=== PATIENT | male | born 1995 | race Caucasian/White ===

== ENCOUNTER 2021-12-14 14:49 | Inpatient (IN) | payer SELFPAY ==
[2021-12-14] VITALS (12 sets, daily range): BP systolic 107–120; BP diastolic 75–91; PULSE 68–93; RESP 18; TEMP 36.5–37.3; O2SAT 96–97; BMI 26.6; BMI 26.8
--- NOTE | 2021-12-14 16:40 | ED.NURSE ---
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 20G IV started in pt R AC, blood drawn, fluids started. Assessments completed.
[2021-12-14] MEDS: 0.9 % SODIUM CHLORIDE 1000 ml 1,000 ML IV (16:42)
[2021-12-14 16:59] LABS: Basophils Percent Auto 0.2 % (0.0-3.0); Eosinophils Percent Auto 78.8 % (0.0-7.0); Hematocrit 46.2 % (37.0-53.0); Hemoglobin* 15.3 gm/dL (13.5-17.5); Immature Granulocytes Abs Auto 0.05 K/uL (0.00-0.30); Lymphocytes Percent Auto 8.1 % (20-44); Mean Corpuscular HGB Conc 33 gm/dL (32-36); Mean Corpuscular Hemoglobin 32 pg (26-34); Mean Corpuscular Volume 95 fL (80-100); Monocytes Percent Auto 2.1 % (0.0-11.0); Neutrophils Percent Auto 10.7 % (42.0-72.0); Platelet Count* 245 K/uL (140-440); RDW Coefficient of Variation % 12.9 % (11.5-15.5); Red Blood Count 4.85 m/uL (4.30-5.90)
--- NOTE | 2021-12-14 17:00 | ED.NURSE ---
Critical lab received: WBC 33.64. Dr. Ca informed.
[2021-12-14 17:02] LABS: White Blood Count* 33.64 K/uL (4.50-11.00)
--- NOTE | 2021-12-14 17:09 | CRLHL7_ITS ---
For Patients: As a result of the 21st Century Cures Act, medical imaging exams and procedure reports are released immediately into your electronic medical record. You may view this report before your referring provider. If you have questions, please contact your health care provider. Indication: Abdominal pain Technique: CT abdomen and pelvis with IV contrast, Isovue 370, 85 cc IV Please note that all CT scans at this facility use dose modulation, iterative reconstruction, and/or weight-based dosing when appropriate to reduce radiation dose to as low as reasonably achievable. Comparison: None Findings: Bibasilar atelectasis. Left lower lobe granuloma. Normal heart size. No pericardial effusion. The inferior esophagus is severely thickened (series 2, image 16). Normal liver size and contour. No focal hepatic lesions. Hepatic veins are under opacified due to contrast timing. The portal veins appear patent. Normal gallbladder. No biliary dilatation. Normal appearance of the adrenal glands, kidneys, spleen and pancreas. The celiac artery, SMA, renal arteries and renal veins appear patent. There is severe gastric wall thickening (series 2, image 50). Normal course of the duodenum. Normal course and caliber of the abdominal aorta and the IVC. No atherosclerotic calcifications. No significant lymphadenopathy. Bladder wall is thickened. Prostate present. There is no bowel obstruction. There are multiple segments of thickened small and large bowel, for example the left colon appears thickened (series 2 image 93). Segments of the right colon appears severely thickened, for example (series 2, image 78). Multiple loops of distal small bowel including the terminal ileum appear thickened, for example (series 2, image 97. There is fecalization of multiple loops of small bowel. The appendix is mildly dilated although air-filled and wall-thickening is favored reactive. Although many loops of bowel are severely edematous, enhancement appears within normal limits for the degree of inflammation. There is small volume ascites and mesenteric edema. No acute retroperitoneal abnormality. No aggressive osseous lesions. No acute osseous abnormality. No acute body wall abnormality. Impression: 1. Multifocal, noncontiguous, severe gastrointestinal wall thickening extending the entirety of the GI tract involving the distal esophagus, stomach, areas of small bowel and large bowel. Findings are nonspecific and may be seen in the setting of infectious and inflammatory enterocolitis, including Crohn`s disease. The distribution of bowel inflammation makes an ischemic etiology much less likely. 2. Severe bladder wall thickening, possibly reactive. Correlate with UA. 3. Small ascites and mesenteric edema, favored reactive. Please note that all CT scans at this facility use dose modulation, iterative reconstruction, and/or weight-based dosing when appropriate to reduce radiation dose to as low as reasonably achievable. Dictated by Hiram Salas MD @ 12/14/2021 6:19:51 PM (Electronically Signed)
[2021-12-14 17:14] LABS: Chloride* 102 mmol/L (96-114)
[2021-12-14 17:15] LABS: Albumin* 4.8 g/dL (3.3-5.0); Potassium* 4.3 mmol/L (3.6-5.1); Sodium* 141 mmol/L (135-149)
[2021-12-14 17:17] LABS: Bilirubin Total* 0.3 mg/dL (0.1-1.5); Creatinine* 0.9 mg/dL (0.5-1.5); Est. Creatinine Clearance* 119.28; Estimated Glomerular Filt Rate 120 ml/min
[2021-12-14 17:18] LABS: Alanine Aminotransferase* 10 U/L (4-50); Alkaline Phosphatase* 177 U/L (40-150); Aspartate Amino Transferase* 24 U/L (12-35); Blood Urea Nitrogen* 13 mg/dL (5-24); Calcium* 9.3 mg/dL (8.4-10.6); Carbon Dioxide* 27 mmol/L (20-32); Glucose* 112 mg/dL (60-115); Lipase* 61 U/L (23-300); Total Protein* 8.8 g/dL (6.0-8.3)
[2021-12-14 17:34] LABS: PCR FLU A Negative PCR FLU A (Negative); PCR FLU B Negative PCR FLU B (Negative)
[2021-12-14 17:39] LABS: SARS PCR* Negative SARS-CoV-2 (Negative)
--- NOTE | 2021-12-14 18:45 | ED.NURSE ---
in [facility] to speak with pt about course of treatment. MD speaking dutch directly to patient. Pt provided UA after speaking with MD.
[2021-12-14 18:48] LABS: Appearance Urine Clear (Clear); Bilirubin Urine Negative (Negative); Blood Urine Negative (Negative); Color Urine Yellow (Yellow); Glucose Urine Negative (Negative); Ketones Urine Negative (Negative); Leukocyte Esterase Urine Negative (Negative); Nitrite Urine Negative (Negative); Protein Urine Negative (Negative); Urobilinogen Urine 0.2 (0.2-1.0)
--- NOTE | 2021-12-14 18:55 | ED.GENADULT ---
HPI - General Adult General Chief complaint: Abdominal Pain Stated complaint: Abdominal Pain/Diarrhea Time Seen by Provider: 12/14/21 15:48 History of Present Illness HPI narrative: Daniel is a 26-year-old male patient without significant PMH that presents with abdominal pain, not well localized. Daniel describes the pain as cramping and aching with occasional sharp pain noted. The patient reports the pain has been waxing/waning for 15 days. The patient also reports history of bloating and gas, nausea without vomiting, and diarrhea. The patient reports not taking medication for his discomfort. The patient reports not taking OTC medication. The patient is able to tolerate PO intake. The patient reports eating has no obvious affect on symptoms. The patient states that he has had no known sick contacts, no recent changes in diet, no travel. He does report h/o tobacco and EtOH use. The patient reports drinking 5-6 beers every couple of weeks. See nursing notes for details. Related Data Home Medications Medication Instructions Recorded Confirmed No Known Home Medications 12/14/21 12/14/21 Allergies Allergy/AdvReac Type Severity Reaction Status Date / Time No Known Drug Allergies Allergy Verified 12/14/21 17:49 Review of Systems Const: Reports: fatigue and malaise; Denies: fever or chills ENMT: Denies: throat pain, nasal discharge or nasal congestion Cardio: Denies: shortness of breath with exertion Resp: Reports: cough; Denies: shortness of breath GI: Reports: abdominal pain, nausea, diarrhea and bloating; Denies: vomiting, heartburn, constipation or painful bowel movements Integ/Breast: Reports: other (nodule/swelling noted in umbilicus); Denies: rash or itching Neuro: Denies: headache, dizziness or confusion Psych: Denies: anxiety Endo: Reports: fatigue PFSH PFSH Social History Smoking Status: Former smoker Do you use any of these nicotine containing products: None Second hand tobacco smoke exposure: No How often do you have a drink containing alcohol: monthly or less How often do you have six or more drinks on one occasion: Never AUDIT-C Alcohol total score: 1 Non-prescribed substance use: denies use Exam Const: Vital Signs, click to edit/add: Vital Signs - 24 hr 12/14/21 15:23 12/14/21 16:45 12/14/21 17:45 Temperature 99.2 F Pulse Rate [Right Pulse Oximeter] 93 68 Respiratory Rate 18 Blood Pressure [Ri ght Upper Arm] 120/81 108/90 H 120/89 Pulse Oximetry 96 96 Oxygen Delivery Me thod Room Air Room Air Documenting provider has reviewed patient's vital signs: yes Common normals: no apparent distress, average body habitus, oriented x3, no limitations, healthy appearing, alert and well nourished General appearance: cooperative, comfortable, well kempt and well developed Orientation/consciousness: Yes awake, Yes oriented to person, Yes oriented to place and Yes oriented to time HENMT: Common normals: normocephalic and head/scalp atraumatic Head and scalp: normocephalic and atraumatic Resp: Common normals: normal respiratory effort, no retractions, no use of accessory muscles and clear to auscultation bilaterally Effort & inspection: able to speak in complete sentences Auscultation: clear to auscultation bilaterally Cardio: Common normals: regular rate, regular rhythm, S1 normal heart sound, S2 normal heart sound, no gallops, no clicks and no murmurs Rate: regular rate Rhythm: regular rhythm Heart sounds: S1 normal and S2 normal GI: Common normals: Normal to inspection, nondistended, normoactive bowel sounds present and soft to palpation Auscultation: hypoactive bowel sounds Palpation: soft, tender Details: other (generalized, mild) and hernia umbilical Extremity: Common normals: normal to inspection, full ROM and no clubbing, cyanosis or edema Neuro: Common normals: oriented x3 Sensorium/orientation: awake, alert, oriented to person, oriented to place and oriented to time Gait (neuro): normal gait Motor exam: strength 5/5 throughout Psych: Common normals: mental status grossly normal, thought process normal, cooperative, affect normal, speech normal and activity/motor behavior normal Appearance: well kempt Speech: normal speech Thought process: normal thought process Skin: Common normals: no rashes or lesions noted and skin turgor normal General skin exam: no rashes or lesions noted and turgor normal Course Course Hospital Course: Daniel presented to the ED with complaints of 15 days of abdominal pain for evaluation and treatment. The patient had laboratory studies performed, after which due to elevation of white count, CT abdomen pelvis with contrast was performed. Evidence of potential inflammatory bowel disease was present on CT. Due to elevation in white count, severe abdominal pain, and persistence of symptoms, the hospitalist was requested to consider observation evaluation and continuation of diagnostic workup. The patient has remained somewhat comfortable while in the emergency department. At time of transfer he is stable. His vital signs have remained normal in the emergency department. Reevaluation(s) Reevaluation #1: Patient reports no significant change in symptoms. Patient's vital signs have remained stable. The results were discussed, and the patient verbalized understanding. Reasons for admission were discussed and he is agreeable. Time: 20:15 Vital Signs Vital signs: Initial Vital Signs Temperature 99.2 F 12/14/21 15:23 Temperature Source Temporal Artery Scan 12/14/21 15:23 Pulse Rate 93 12/14/21 15:23 Respiratory Rate 18 12/14/21 15:23 Blood Pressure 120/81 12/14/21 15:23 Blood Pressure Mean 94 12/14/21 15:23 Pulse Oximetry 96 12/14/21 15:23 Oxygen Delivery Method 12/14/21 15:23 Vital Signs Temperature 99.2 F 12/14/21 15:23 Pulse Rate 93 12/14/21 15:23 Respiratory Rate 18 12/14/21 15:23 Blood Pressure 120/81 12/14/21 15:23 Pulse Oximetry 96 12/14/21 15:23 Oxygen Delivery Method 12/14/21 15:23 Temperature 99.2 F 12/14/21 15:23 Pulse Rate 68 12/14/21 17:45 Respiratory Rate 18 12/14/21 15:23 Blood Pressure 120/89 12/14/21 17:45 Pulse Oximetry 96 12/14/21 17:45 Oxygen Delivery Method 12/14/21 17:45 Medical Decision Making MDM Narrative Medical decision making narrative: During the evaluation of this patient consider multiple differential diagnosis considerations. The life-threatening differential diagnoses considered include: Appendicitis, aortic aneurysm, mesenteric ischemia, bowel perforation, volvulus, and bowel obstruction. Other differential diagnoses include but are not limited to: Inflammatory bowel disease, cholecystitis, pancreatitis, hepatitis, gastritis, GERD, diverticulitis, peptic ulcer disease, pyelonephritis/UTI, renal colic/stone, diseases of the genitourinary system and reproductive system, as well as the other etiologies. Lab Data Labs: Lab Results 12/14/21 12/14/21 12/14/21 Range/Units 16:40 16:40 16:50 WBC 33.64 H* (4.50-11.00) K/uL RBC 4.85 (4.30-5.90) m/uL Hgb 15.3 (13.5-17.5) gm/dL Hct 46.2 (37.0-53.0) % MCV 95 (80-100) fL MCH 32 (26-34) pg MCHC 33 (32-36) gm/dL RDW Coeff of Richard 12.9 (11.5-15.5) % Plt Count 245 (140-440) K/uL Neut % (Auto) 10.7 L (42.0-72.0) % Lymph % (Auto) 8.1 L (20-44) % Trimble % (Auto) 2.1 (0.0-11.0) % Eos % (Auto) 78.8 H (0.0-7.0) % Baso % (Auto) 0.2 (0.0-3.0) % Neut # (Auto) 3.60 (1.7-7.0) K/uL Lymph # (Auto) 2.70 (0.90-2.90) K/uL Trimble # (Auto) 0.70 (0.00-0.90) K/UL Eos # (Auto) 26.50 H (0.00-0.50) K/uL Baso # (Auto) 0.10 (0.00-0.30) K/uL Abs Immat Gran (auto) 0.05 (0.00-0.30) K/uL Sodium 141 (135-149) mmol/L Potassium 4.3 (3.6-5.1) mmol/L Chloride 102 (96-114) mmol/L Carbon Dioxide 27 (20-32) mmol/L BUN 13 (5-24) mg/dL Creatinine 0.9 (0.5-1.5) mg/dL Estimated Creat Clear 119.28 Estimated GFR 120 ml/min Glucose 112 (60-115) mg/dL Venous Lactic Acid (Serial Order) Calcium 9.3 (8.4-10.6) mg/dL Total Bilirubin 0.3 (0.1-1.5) mg/dL AST 24 (12-35) U/L ALT 10 (4-50) U/L Alkaline Phosphatase 177 H (40-150) U/L Total Protein 8.8 H (6.0-8.3) g/dL Albumin 4.8 (3.3-5.0) g/dL Lipase 61 (23-300) U/L Urine Color (Yellow) Urine Appearance (Clear) Urine pH (5.0-8.5) Ur Specific Baudette (1.000-1.030) Urine Protein (Negative) Urine Glucose (UA) (Negative) Urine Ketones (Negative) Urine Blood (Negative) Urine Nitrite (Negative) Urine Bilirubin (Negative) Urine Urobilinogen (0.2-1.0) Ur Leukocyte Esterase (Negative) SARS-CoV-2 (PCR) Negative SARS-CoV-2 (Negative) Influenza Type A (PCR) Negative PCR FLU A (Negative) Influenza Type B (PCR) Negative PCR FLU B (Negative) 12/14/21 12/14/21 Range/Units 17:37 18:35 WBC (4.50-11.00) K/uL RBC (4.30-5.90) m/uL Hgb (13.5-17.5) gm/dL Hct (37.0-53.0) % MCV (80-100) fL MCH (26-34) pg MCHC (32-36) gm/dL RDW Coeff of Richard (11.5-15.5) % Plt Count (140-440) K/uL Neut % (Auto) (42.0-72.0) % Lymph % (Auto) (20-44) % Trimble % (Auto) (0.0-11.0) % Eos % (Auto) (0.0-7.0) % Baso % (Auto) (0.0-3.0) % Neut # (Auto) (1.7-7.0) K/uL Lymph # (Auto) (0.90-2.90) K/uL Trimble # (Auto) (0.00-0.90) K/UL Eos # (Auto) (0.00-0.50) K/uL Baso # (Auto) (0.00-0.30) K/uL Abs Immat Gran (auto) (0.00-0.30) K/uL Sodium (135-149) mmol/L Potassium (3.6-5.1) mmol/L Chloride (96-114) mmol/L Carbon Dioxide (20-32) mmol/L BUN (5-24) mg/dL Creatinine (0.5-1.5) mg/dL Estimated Creat Clear Estimated GFR ml/min Glucose (60-115) mg/dL Venous Lactic Acid (Serial Order) Calcium (8.4-10.6) mg/dL Total Bilirubin (0.1-1.5) mg/dL AST (12-35) U/L ALT (4-50) U/L Alkaline Phosphatase (40-150) U/L Total Protein (6.0-8.3) g/dL Albumin (3.3-5.0) g/dL Lipase (23-300) U/L Urine Color Yellow (Yellow) Urine Appearance Clear (Clear) Urine pH 5.0 (5.0-8.5) Ur Specific Baudette 1.010 (1.000-1.030) Urine Protein Negative (Negative) Urine Glucose (UA) Negative (Negative) Urine Ketones Negative (Negative) Urine Blood Negative (Negative) Urine Nitrite Negative (Negative) Urine Bilirubin Negative (Negative) Urine Urobilinogen 0.2 (0.2-1.0) Ur Leukocyte Esterase Negative (Negative) SARS-CoV-2 (PCR) (Negative) Influenza Type A (PCR) (Negative) Influenza Type B (PCR) (Negative) Discharge Plan Discharge Clinical Impression: Diarrhea, IBD (inflammatory bowel disease) Patient Disposition: Admitted As Inpatient Condition: Stable Activity Level: Activity as Tolerated Discharge Diet: Heart Healthy (2 gm sodium, low fat) and Low Fiber Prescriptions: No Action No Known Home Medications Follow Up/Referrals: Provider,Not a Local [Primary Care Provider] -
--- NOTE | 2021-12-14 20:26 | W.PC.EDHO ---
Primary Language: Romanian Preferred Language: Romanian Orientation Status: [x] Alert & Oriented [] Slight Confusion [] Known Dx Dementia Transfers By: [x] Assist of 1 [] Assist of 2 [] Lift Description of Symptoms ED Triage Present Problem abd pain x 15 days. some vomiting and diarrhea. Description no fevers. pain does improve with ibuprofen Pain Pain Description [Lower Dull, Achy Abdomen] Pain Intensity [Lower Abdomen] 6 Pain Intensity 6 Pain Intensity 6 Pain Intensity 6 Pain Intensity 6 Pain Scale Used [Lower Abdomen Numeric (1 - 10) ] Pain Scale Used Numeric (1 - 10) Pain Scale Used Numeric (1 - 10) Pain Scale Used Numeric (1 - 10) Pain Scale Used Numeric (1 - 10) IV Insertion/Site Date of IV Line Insertion [ 12/14/21 Right Antecubital] Oxygen Administration Pulse Oximetry 96 Pulse Oximetry 96 Oxygen Delivery Method Room Air Oxygen Delivery Method Room Air
[2021-12-14 20:28] LABS: Lactate Sepsis 2 Hour 0.8 mmol/L (0.5-1.9)
--- NOTE | 2021-12-14 20:28 | ED.NURSE ---
Report called to M/S RN.
--- NOTE | 2021-12-14 21:01 | P.IMHP_ITS ---
Hospitalist- H&P: HPI History of Present Illness Time Seen by Provider: 20:00 Date Seen: 12/14/21 Chief complaint: Abdominal Pain/Diarrhea Narrative: Daniel Lewis is a 26 year old man who is usually healthy. About 15 days ago he had the sudden onset of right lower quadrant abdominal pain that he describes as aching. At times he describes the pain as transiently cramping and sharp. Over time the discomfort became a little more generalized, not so lo calized. Pain seemed to wax and wane. Has had nausea without vomiting. Interestingly the nausea is worse when he 1st awakens. Nausea seems to resolved after he eats. Has felt bloated and gassy. Has had diarrhea since then as well. Over the last few days it seems to have postprandial diarrhea within 45 minutes of eating. Denies blood loss of any sort including hematochezia or melena. Has been able to tolerate oral intake. Appetite is has remained normal. Denies fevers, rigors, diaphoresis. For the abdominal discomfort he has been taking [id number] ibuprofen 200 mg tabs, 2 tabs orally twice daily. He is not sure if it has helped or not. Ordinarily he does not take ibuprofen. Has not tried any other pain relieving medications. Has also used [id number] Gas-X for the bloating which seems to have helped at times. Review of Systems Status of ROS: Reports: 10 or more systems reviewed and unremarkable except as noted in History and below Narrative: No prior similar symptoms in the past. Denies chest heaviness, pressure, tightness, or pain. Denies syncope or near-syncope. Denies orthostasis, lightheadedness, or vertigo. Denies any oral lesions. Has not had any new rashes. Denies cold or heat intolerance. Denies polyuria, polydipsia, polyphagia. Denies edema. No focal motor neurologic deficits. Denies easy bruisability. No spontaneous bleeding. Denies jaundice or icterus. Denies pruritus. Denies dysuria, urgency, frequency, hematuria. Denies myalgias or arthralgias. Interestingly enough throughout all of this he has continue to work. 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 These symptoms have not slowed him down and so far as his ability to carry out his work. Has felt a little more tired however. It is not getting better and thus he presents for further assessment today in regard to the same. No family history of similar illness. No family history of Crohn's disease or any other inflammatory bowel disease. Patient is originally from [place]. Has been living in [facility] for about 12 years. Lives with his and 2 children. and children are doing well without symptoms or concerns. [facility] Social History Highest level of school completed/degree received: high school graduate Smoking Status: Former smoker Do you use any of these nicotine containing products: None Second hand tobacco smoke exposure: No How often do you have a drink containing alcohol: monthly or less Alcohol type: beer How often do you have six or more drinks on one occasion: Never AUDIT-C Alcohol total score: 1 Non-prescribed substance use: denies use Caffeine: Yes service: No Meds Home Medications and Allergies Home Medications Medication Instructions Recorded Confirmed Type No Known Home Medications 12/14/21 12/14/21 History Allergies Allergy/AdvReac Type Severity Reaction Status Date / Time No Known Drug Allergies Allergy Verified 12/14/21 17:49 Exam Narrative: Exam Narrative: Appears comfortable when I see him. No acute distress. Well-developed, muscular young man. Primary language is [place]. Speaks some Citizen [place]. I speak with him principally through an senior financial reporting analyst. Alert, oriented to self, place, time, situation. Appears anxious. Mood and affect are congruent. External auditory canals are clear tympanic membranes normal hearing is preserved. Midline nasal septum nasal mucosa. Buccal mucosa somewhat dry and tacky. No oral lesions. Dentition in fair repair. Has no icterus or conjunctival injection. Pupils equally round reactive to light and accommodation. Extraocular muscles are intact. Vision is grossly preserved. Midline trachea. Normal thyroid. No JVD, hepatojugular reflux, or carotid bruits. Neck is supple. Does not have lymphadenopathy in the pre or postauricular chains, anterior- posterior cervical chains, submandibular or submental fossa, supra or infraclavicular fossa, or axilla bilaterally. Lungs are clear to auscultation, without wheezing, rhonchi, or rales. Chest wall excursions are full. No CVA tenderness. Heart tones with regular rhythm, normal S1-S2, without murmur, gallop, or rub. PMI is not laterally displaced. Abdomen with active bowel sounds. Subjective discomfort to palpation without rebound or guarding. No organomegaly or masses. Does have a 1-1/2 cm easily reducible umbilical hernia. Extremities without edema. Easily palpable pulses upper and lower extremities. No petechiae, rashes, cyanosis. Skin is intact. Full range of motion of all joints. No inflamed or swollen joints. No focal motor neurologic deficits. Independent transfer, station, and gait. Const: Vital Signs, click to edit/add: Vital Signs - 24 hr 12/14/21 15:23 12/14/21 16:45 12/14/21 18:00 Temperature 99.2 F Pulse Rate [Right Pulse Oximeter] 93 70 Respiratory Rate 18 Blood Pressure [Le ft Arm] Blood Pressure [Ri ght Upper Arm] 120/81 108/90 H 108/83 Pulse Oximetry 96 97 Oxygen Delivery Oh thod Room Air Room Air 12/14/21 17:45 12/14/21 20:39 12/14/21 20:52 Temperature 99.2 F Pulse Rate [Right Pulse Oximeter] 68 81 Respiratory Rate 18 18 Blood Pressure [Le ft Arm] 118/83 Blood Pressure [Ri ght Upper Arm] 120/89 Pulse Oximetry 96 96 96 Oxygen Delivery Oh thod Room Air Room Air Room Air 12/14/21 18:30 12/14/21 19:00 12/14/21 19:30 Temperature Pulse Rate [Right Pulse Oximeter] 73 76 91 Respiratory Rate Blood Pressure [Le ft Arm] Blood Pressure [Ri ght Upper Arm] 113/78 116/89 118/91 H Pulse Oximetry 96 97 96 Oxygen Delivery Oh thod Room Air Room Air Room Air 12/14/21 20:00 Temperature Pulse Rate [Right Pulse Oximeter] 78 Respiratory Rate Blood Pressure [Le ft Arm] Blood Pressure [Ri ght Upper Arm] 116/87 Pulse Oximetry 97 Oxygen Delivery Oh thod Room Air Documenting provider has reviewed patient's vital signs: yes Hospitalist - H&P: Result Labs Labs: Short CBC 12/14/21 Range/Units 16:40 WBC 33.64 H* (4.50-11.00) K/uL Hgb 15.3 (13.5-17.5) gm/dL Hct 46.2 (37.0-53.0) % Plt Count 245 (140-440) K/uL BMP 12/14/21 16:40 Sodium 141 Potassium 4.3 Chloride 102 Carbon Dioxide 27 BUN 13 Creatinine 0.9 Glucose 112 Calcium 9.3 Liver Function 12/14/21 Range/Units 16:40 Total Bilirubin 0.3 (0.1-1.5) mg/dL AST 24 (12-35) U/L ALT 10 (4-50) U/L Alkaline Phosphatase 177 H (40-150) U/L Albumin 4.8 (3.3-5.0) g/dL Urine 12/14/21 Range/Units 18:35 Urine Color Yellow (Yellow) Urine Appearance Clear (Clear) Urine pH 5.0 (5.0-8.5) Ur Specific [place] 1.010 (1.000-1.030) Urine Protein Negative (Negative) Urine Glucose (UA) Negative (Negative) Imaging CT scan - abdomen: Attestation: I have reviewed the pertinent imaging results. Radiologist's impression: Multifocal, noncontiguous, severe gastrointestinal wall thickening extending the entirety of the gastrointestinal tract involving the distal esophagus, stomach, areas of the small bowel and large bowel. Assessment and Plan Assessment and plan (1) Nausea alone: Status: Acute (2) Diarrhea: Status: Acute (3) Abdominal pain: Status: Acute (4) IBD (inflammatory bowel disease): Status: Acute Assessment and Plan: Certainly greatest concern is that the patient is presenting with Crohn's disease. (5) Dehydration: Status: Acute (6) Leukocytosis: Status: Acute Assessment and Plan: 1. Blood cultures have been obtained in the emergency department. 2. I do not believe that his current presentation warrants the initiation of empiric antibiotics. 3. Continue to monitor him closely while here in the hospital and observe him. (7) Elevated alkaline phosphatase level: Status: Acute Assessment and Plan: 1. An elevated alkaline phosphatase level in the setting of Crohn's disease is concerning for the possibility of developing primary sclerosing cholangitis. 2. This will certainly warrant follow-up. Plan 1. Patient's constellation of symptoms and signs are very concerning for Crohn's disease. Differential diagnosis includes celiac disease as well as nonsteroidal anti-inflammatory medication induced enteropathy. 2. Reviewed my impressions with the patient. Answered his questions. 3. Admit to observation. Initiate IV methylprednisolone today and tomorrow. If improving then consider switching to oral prednisone 40 mg daily starting on . If he does well with the oral prednisone, in a relatively short period of time a tapering schedule can be initiated. 4. IV fluids. Clear liquids orally as tolerated. 5. Monitor fluid status, including with orthostatic blood pressures and pulses. 6. Check stool for culture, O&P, Clostridium difficile, Helicobacter pylori antigen. 7. Will check a tissue transglutaminase IgA as well as a total IgA. If total IgA is deficient, then will need to check a deaminated gliadin peptide IgG level to screen for celiac disease. 8. Will continue to monitor elevated white blood cell count, chemistries, C reactive protein level, and will check an iron level, vitamin-D level, and a vitamin B12 level. 9. Patient needs an esophagogastroduodenoscopy with biopsies as well as a colonoscopy with biopsies. Will tentatively try to schedule this for morning if possible. 10. Will ask for nutritional consult. 11. Will need to establish outpatient primary care follow-up and consultation with Gastroenterology.
[2021-12-14] MEDS: PANTOPRAZOLE SODIUM 40 MG INJ IVP (21:08)
[2021-12-14] MEDS: METHYLPREDNISOLONE SOD SUCC 40 MG/ML IVP (21:08)
[2021-12-14] MEDS: 0.9 % SODIUM CHLORIDE 1000 ml 1,000 ML 125 ML IV (21:08)
[2021-12-14 23:06] LABS: Slide Review Reflex No
[2021-12-14 23:45] LABS: Erythrocyte SedimentationRate* <2 mm/hr (2-15)
[2021-12-15] MEDS: 0.9 % SODIUM CHLORIDE 1000 ml 1,000 ML 125 ML IV ×3 (02:50→19:16)
[2021-12-15 03:00] VITALS: BP 111/74; PULSE 95; RESP 18; TEMP 36.6; O2SAT 95
[2021-12-15] MEDS: OMEPRAZOLE 20 MG CAPSULE DR PO (06:35)
[2021-12-15 07:00] VITALS: BP 114/71; PULSE 78; PULSE 97; RESP 18; RESP 20; TEMP 36.8; O2SAT 97
--- NOTE | 2021-12-15 07:01 | PC.NURSE ---
pt pleasant and cooperative. Irish speaking, requires aerial photograph interpreter. Can communicate some in Greek. Since admin to floor pt has not c/o abd pain. No BM. need stool sample Denies nausea. VSS. Afebrile. ?
[2021-12-15 07:21] LABS: Albumin* 3.9 g/dL (3.3-5.0)
[2021-12-15 07:24] LABS: Aspartate Amino Transferase* 27 U/L (12-35); Bilirubin Direct* 0.1 mg/dL (0.0-0.5); Bilirubin Total* 0.2 mg/dL (0.1-1.5); Total Protein* 7.3 g/dL (6.0-8.3)
[2021-12-15 07:25] LABS: Alanine Aminotransferase* 11 U/L (4-50); Alkaline Phosphatase* 150 U/L (40-150)
[2021-12-15 07:30] LABS: Iron* 57 ug/dL (49-181)
[2021-12-15 07:39] LABS: Percent Iron Saturation 17 % (20-50); Total Iron Binding Capacity 342 ug/dL (261-462)
[2021-12-15 08:09] LABS: Basophils Percent Auto 0.4 % (0.0-3.0); Hematocrit 42.3 % (37.0-53.0); Hemoglobin* 13.9 gm/dL (13.5-17.5); Immature Granulocytes Abs Auto 0.08 K/uL (0.00-0.30); Lymphocytes Percent Auto 17.8 % (20-44); Mean Corpuscular HGB Conc 33 gm/dL (32-36); Mean Corpuscular Hemoglobin 31 pg (26-34); Mean Corpuscular Volume 95 fL (80-100); Monocytes Percent Auto 1.9 % (0.0-11.0); Neutrophils Percent Auto 54.2 % (42.0-72.0); Platelet Count* 236 K/uL (140-440); Red Blood Count 4.44 m/uL (4.30-5.90); White Blood Count* 11.07 K/uL (4.50-11.00)
[2021-12-15 08:11] LABS: Slide Review Reflex No
[2021-12-15 08:14] LABS: Vitamin B12* 823 pg/mL (243-894)
[2021-12-15 08:16] LABS: Gamma Glutamyl Transpeptidase* 16 U/L (8-55)
[2021-12-15 08:20] LABS: C Reactive Protein* 1.3 mg/dL (0.5-1.0)
[2021-12-15 08:20] LABS: Vitamin D 25 Hydroxy* 26 ng/mL (30-80)
[2021-12-15] MEDS: METHYLPREDNISOLONE SOD SUCC 40 MG/ML IVP ×2 (08:31→17:31)
--- NOTE | 2021-12-15 08:59 | PC.NURSE ---
Addendum entered by Jose Alejandro Brandt RN 12/15/21 17:27: C-diff positive. Precautions in place. no frequent stools that patient is reporting, thus far one formed BM this AM that was sent to lab. Due to positive result, only EGD to be done tomorrow morning. Pt to be NPO at midnight. Otherwise tolerating clears well. BS active x4. Pt given Tylenol x1 for abdominal pain. Denied need for further pain coverage at this time. Steady on feet and indep. in room. Fluids continue to run at 125/hr. Addendum entered by Jose Alejandro Brandt RN 12/15/21 11:21: stool sample obtained - brown and formed - results still pending. Prep for scope tomorrow starts at noon. Original Note: Patient pleasant and cooperative. Wolof speaking and understands some Kiswahili. 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 Pt denies pain but reports bloating/discomfort to upper abdomen, pt points just below diaphraghm. Denies tenderness when auscultating BS, BS activex4. Pt tolerating clear liquids, denies nausea. No BM/diarrhea since prior to ED. Pt aware we need stool sample yet. Upper and lower GI scopes ordered for tomorrow, unsure as to scheduled time yet. NS running at 125/hr. IV solumderol given this AM.
[2021-12-15 09:06] LABS: INR 1.19 (0.91-1.10); Prothrombin Time 15.5 Seconds
--- NOTE | 2021-12-15 09:47 | PM.IMPN1 ---
Progress Note: A&P Assessment and plan (1) IBD (inflammatory bowel disease): Status: Acute Assessment and Plan: Symptoms and CT findings concerning for IBD. Start colonoscopy prep today for EGD/Colonoscopy tomorrow morning. Reviewed case with Dr. Austin of General Surgery. Continue IV steroids today, plan to transition to oral steroids 12/16. (2) Abdominal pain: Status: Acute Assessment and Plan: Improved. (3) Diarrhea: Status: Acute Assessment and Plan: Likely related to #1. Stool studies pending. (4) Leukocytosis: Status: Acute Assessment and Plan: Improved. (5) Elevated alkaline phosphatase level: Status: Acute Plan SCDs for prophylaxis. Plan to discharge home with family when medically stable, likely tomorrow following scopes. Time Spent With Patient Total time spent: 35, including coordination of care Subjective Date Seen: 12/15/21 Interval history: Patient endorses less abdominal pain today, he had a bowel movement this morning that was nonbloody. He is tolerating steroids well. His white count has come down significantly. He is amenable to Endoscopy and Colonoscopy for workup of his symtpoms. He notes abdominal pain as a teenager, diagnosed with ulcers but has never had an EGD. Exam Narrative: Exam Narrative: GEN: Alert and oriented HEENT: Normal external ears, EOMIs bilaterally, no scleral icterus CV: RRR, No concerning murmurs, rubs, or gallops R: LCTA bilaterally without concerning wheezing, rales, or rhonchi Abdomen: Soft, tolerates exam, positive bowel sounds Ext: wwp, no concerning edema Skin: No concerning skin lesions or rashes on exposed skin Neuro: Nonfocal Psych: Appropriate Const: Vital Signs, click to edit/add: Vital Signs - 24 hr 12/14/21 15:23 12/14/21 16:45 12/14/21 18:00 Temperature 99.2 F Pulse Rate [Right Pulse Oximeter] 93 70 Respiratory Rate 18 Blood Pressure [Le ft Arm] Blood Pressure [Ri ght Upper Arm] 120/81 108/90 H 108/83 Pulse Oximetry 96 97 Oxygen Delivery Me thod Room Air Room Air 12/14/21 17:45 12/14/21 20:39 12/14/21 20:52 Temperature 99.2 F Pulse Rate [Right Pulse Oximeter] 68 81 Respiratory Rate 18 18 Blood Pressure [Le ft Arm] 118/83 Blood Pressure [Ri ght Upper Arm] 120/89 Pulse Oximetry 96 96 96 Oxygen Delivery Me thod Room Air Room Air Room Air 12/14/21 18:30 12/14/21 19:00 12/14/21 19:30 Temperature Pulse Rate [Right Pulse Oximeter] 73 76 91 Respiratory Rate Blood Pressure [Le ft Arm] Blood Pressure [Ri ght Upper Arm] 113/78 116/89 118/91 H Pulse Oximetry 96 97 96 Oxygen Delivery Me thod Room Air Room Air Room Air 12/14/21 20:00 12/14/21 21:24 12/14/21 22:52 Temperature 97.7 F Pulse Rate [Right Pulse Oximeter] 78 81 73 Respiratory Rate 18 18 Blood Pressure [Le ft Arm] 107/75 Blood Pressure [Ri ght Upper Arm] 116/87 Pulse Oximetry 97 96 Oxygen Delivery Me thod Room Air Room Air 12/15/21 03:00 12/15/21 07:00 12/15/21 07:00 Temperature 98 F 98.2 F Pulse Rate [Right Pulse Oximeter] 95 97 78 Respiratory Rate 18 20 18 Blood Pressure [Le ft Arm] 111/74 114/71 Blood Pressure [Ri ght Upper Arm] Pulse Oximetry 95 97 Oxygen Delivery Me thod Room Air Room Air Labs Labs: Laboratory Results - last 24 hr 12/14/21 12/14/21 12/14/21 16:40 16:40 16:40 WBC 33.64 H* RBC 4.85 Hgb 15.3 Hct 46.2 MCV 95 MCH 32 MCHC 33 RDW Coeff of Richard 12.9 Plt Count 245 Neut % (Auto) 10.7 L Lymph % (Auto) 8.[address] [place] % (Auto) 2.1 Eos % (Auto) 78.8 H Baso % (Auto) 0.2 Neut # (Auto) 3.60 Lymph # (Auto) 2.70 [place] # (Auto) 0.70 Eos # (Auto) 26.50 H Baso # (Auto) 0.10 Abs Immat Gran (auto) 0.05 ESR <2 L INR Sodium 141 Potassium 4.3 Chloride 102 Carbon Dioxide 27 BUN 13 Creatinine 0.9 Estimated Creat Clear 119.28 Estimated GFR 120 Glucose 112 Lactate Venous Lactic Acid (Serial Order) Calcium 9.3 Iron TIBC % Saturation Total Bilirubin 0.3 Direct Bilirubin GGT AST 24 ALT 10 Alkaline Phosphatase 177 H C-Reactive Protein Total Protein 8.8 H Albumin 4.8 Lipase 61 Vitamin B12 25-OH Vitamin D Total Urine Color Urine Appearance Urine pH Ur Specific [place] Urine Protein Urine Glucose (UA) Urine Ketones Urine Blood Urine Nitrite Urine Bilirubin Urine Urobilinogen Ur Leukocyte Esterase SARS-CoV-2 (PCR) Influenza Type A (PCR) Influenza Type B (PCR) 12/14/21 12/14/21 12/14/21 16:50 17:37 18:35 WBC RBC Hgb Hct MCV MCH MCHC RDW Coeff of Richard Plt Count Neut % (Auto) Lymph % (Auto) [place] % (Auto) Eos % (Auto) Baso % (Auto) Neut # (Auto) Lymph # (Auto) [place] # (Auto) Eos # (Auto) Baso # (Auto) Abs Immat Gran (auto) ESR INR Sodium Potassium Chloride Carbon Dioxide BUN Creatinine Estimated Creat Clear Estimated GFR Glucose Lactate Venous Lactic Acid (Serial Order) Calcium Iron TIBC % Saturation Total Bilirubin Direct Bilirubin GGT AST ALT Alkaline Phosphatase C-Reactive Protein Total Protein Albumin Lipase Vitamin B12 25-OH Vitamin D Total Urine Color Yellow Urine Appearance Clear Urine pH 5.0 Ur Specific [place] 1.010 Urine Protein Negative Urine Glucose (UA) Negative Urine Ketones Negative Urine Blood Negative Urine Nitrite Negative Urine Bilirubin Negative Urine Urobilinogen 0.2 Ur Leukocyte Esterase Negative SARS-CoV-2 (PCR) Negative SARS-CoV-2 Influenza Type A (PCR) Negative PCR FLU A Influenza Type B (PCR) Negative PCR FLU B 12/15/21 12/15/21 12/15/21 06:30 06:30 06:30 WBC RBC Hgb Hct MCV MCH MCHC RDW Coeff of Richard Plt Count Neut % (Auto) Lymph % (Auto) [place] % (Auto) Eos % (Auto) Baso % (Auto) Neut # (Auto) Lymph # (Auto) [place] # (Auto) Eos # (Auto) Baso # (Auto) Abs Immat Gran (auto) ESR INR Sodium Potassium Chloride Carbon Dioxide BUN Creatinine Estimated Creat Clear Estimated GFR Glucose Lactate Venous Lactic Acid (Serial Order) Calcium Iron 57 TIBC 342 % Saturation 17 L Total Bilirubin 0.2 Direct Bilirubin 0.1 GGT AST 27 ALT 11 Alkaline Phosphatase 150 C-Reactive Protein Total Protein 7.3 Albumin 3.9 Lipase Vitamin B12 823 25-OH Vitamin D Total 26 L Urine Color Urine Appearance Urine pH Ur Specific [place] Urine Protein Urine Glucose (UA) Urine Ketones Urine Blood Urine Nitrite Urine Bilirubin Urine Urobilinogen Ur Leukocyte Esterase SARS-CoV-2 (PCR) Influenza Type A (PCR) Influenza Type B (PCR) 12/15/21 12/15/21 12/15/21 06:35 06:35 08:26 WBC 11.07 H RBC 4.44 Hgb 13.9 Hct 42.3 MCV 95 MCH 31 MCHC 33 RDW Coeff of Richard 13.0 Plt Count 236 Neut % (Auto) 54.2 Lymph % (Auto) 17.[address] [place] % (Auto) 1.9 Eos % (Auto) 25.0 H Baso % (Auto) 0.4 Neut # (Auto) 6.00 Lymph # (Auto) 2.00 [place] # (Auto) 0.20 Eos # (Auto) 2.80 H Baso # (Auto) 0.00 Abs Immat Gran (auto) 0.08 ESR INR 1.19 H Sodium Potassium Chloride Carbon Dioxide BUN Creatinine Estimated Creat Clear Estimated GFR Glucose Lactate Venous Lactic Acid (Serial Order) Calcium Iron TIBC % Saturation Total Bilirubin Direct Bilirubin GGT 16 AST ALT Alkaline Phosphatase C-Reactive Protein 1.3 H Total Protein Albumin Lipase Vitamin B12 25-OH Vitamin D Total Urine Color Urine Appearance Urine pH Ur Specific [place] Urine Protein Urine Glucose (UA) Urine Ketones Urine Blood Urine Nitrite Urine Bilirubin Urine Urobilinogen Ur Leukocyte Esterase SARS-CoV-2 (PCR) Influenza Type A (PCR) Influenza Type B (PCR) 12/15/21 08:26 WBC RBC Hgb Hct MCV MCH MCHC RDW Coeff of Richard Plt Count Neut % (Auto) Lymph % (Auto) [place] % (Auto) Eos % (Auto) Baso % (Auto) Neut # (Auto) Lymph # (Auto) [place] # (Auto) Eos # (Auto) Baso # (Auto) Abs Immat Gran (auto) ESR INR Sodium Potassium Chloride Carbon Dioxide BUN Creatinine Estimated Creat Clear Estimated GFR Glucose Lactate 1.0 Venous Lactic Acid (Serial Order) Calcium Iron TIBC % Saturation Total Bilirubin Direct Bilirubin GGT AST ALT Alkaline Phosphatase C-Reactive Protein Total Protein Albumin Lipase Vitamin B12 25-OH Vitamin D Total Urine Color Urine Appearance Urine pH Ur Specific [place] Urine Protein Urine Glucose (UA) Urine Ketones Urine Blood Urine Nitrite Urine Bilirubin Urine Urobilinogen Ur Leukocyte Esterase SARS-CoV-2 (PCR) Influenza Type A (PCR) Influenza Type B (PCR)
[2021-12-15] MEDS: ACETAMINOPHEN 325 MG TABLET 650 MG PO (10:38)
[2021-12-15 11:00] VITALS: BP 113/76; PULSE 69; RESP 18; TEMP 36.6; O2SAT 96
[2021-12-15 11:22] LABS: CDIFFEPI 027 PRESUMPTIVE NEGATIVE (Negative)
[2021-12-15 11:27] LABS: C.Difficile POSITIVE (Negative)
[2021-12-15 11:47] LABS: H pylori Ag Stool* Negative (Negative)
[2021-12-15] MEDS: VANCOMYCIN 125 MG CAPSULE PO ×3 (13:33→20:21)
[2021-12-15 15:00] VITALS: BP 104/62; PULSE 83; RESP 18; TEMP 36.8; O2SAT 96
[2021-12-15] MEDS: SODIUM CHLORIDE 0.9 % (FLUSH) 10 ML SYRINGE 5 ML IVF (17:32)
[2021-12-15 19:00] VITALS: BP 114/73; PULSE 89; RESP 18; TEMP 36.7; O2SAT 96
[2021-12-15 23:00] VITALS: BP 112/69; PULSE 90; RESP 18; TEMP 36.5; O2SAT 96
[2021-12-16] MEDS: 0.9 % SODIUM CHLORIDE 1000 ml 1,000 ML 125 ML IV (02:40)
[2021-12-16 02:59] VITALS: BP 108/70; PULSE 76; RESP 18; TEMP 36.5; O2SAT 95
--- NOTE | 2021-12-16 06:01 | PC.NURSE ---
19-: shift unremarkable. Contact precautions in place. Indep in room. VSS and WNL. No c/o pain or nausea. NPO at midnight for upper endo this AM. NS running at 125.
[2021-12-16 07:38] LABS: Basophils Percent Auto 0.1 % (0.0-3.0); Eosinophils Percent Auto 1.1 % (0.0-7.0); Hematocrit 39.6 % (37.0-53.0); Hemoglobin* 13.1 gm/dL (13.5-17.5); Immature Granulocytes Abs Auto 0.13 K/uL (0.00-0.30); Lymphocytes Percent Auto 12.6 % (20-44); Mean Corpuscular HGB Conc 33 gm/dL (32-36); Mean Corpuscular Hemoglobin 32 pg (26-34); Mean Corpuscular Volume 95 fL (80-100); Monocytes Percent Auto 9.8 % (0.0-11.0); Neutrophils Percent Auto 75.6 % (42.0-72.0); Platelet Count* 237 K/uL (140-440); Red Blood Count 4.16 m/uL (4.30-5.90); White Blood Count* 16.83 K/uL (4.50-11.00)
[2021-12-16 07:52] LABS: Albumin* 3.8 g/dL (3.3-5.0); Chloride* 108 mmol/L (96-114)
[2021-12-16 07:53] LABS: Potassium* 4.2 mmol/L (3.6-5.1); Sodium* 142 mmol/L (135-149)
[2021-12-16 07:55] LABS: Bilirubin Total* 0.1 mg/dL (0.1-1.5); Carbon Dioxide* 25 mmol/L (20-32); Creatinine* 0.7 mg/dL (0.5-1.5); Est. Creatinine Clearance* 153.36; Estimated Glomerular Filt Rate 130 ml/min; Slide Review Reflex No; Total Protein* 6.9 g/dL (6.0-8.3)
[2021-12-16 07:56] LABS: Alanine Aminotransferase* 9 U/L (4-50); Alkaline Phosphatase* 125 U/L (40-150); Aspartate Amino Transferase* 17 U/L (12-35); Blood Urea Nitrogen* 10 mg/dL (5-24); Calcium* 8.9 mg/dL (8.4-10.6); Glucose* 114 mg/dL (60-115)
--- NOTE | 2021-12-16 08:12 | W.ANESCHARGE ---
Anesthesia Charges Start Date/Time Anesthesia Start Date: 12/16/21 Anesthesia Start Time: 07:40 Stop Date/Time Anesthesia Stop Date: 12/16/21 Anesthesia Stop Time: 08:03 Summary Emergency: No
--- NOTE | 2021-12-16 08:45 | NUTR.NU ---
MD consult received for potential Crohn's Disease. Endoscopy completed today, showing ulcers. Per MD report, patient has had ulcers when he was a teenager. C. Diff + 12/15/21. Patient is planning to discharge home today. Plan is for patient to follow-up with GI specialist. Would recommend patient follow-up with nutrition consult as an outpatient.
[2021-12-16 08:50] VITALS: BP 110/78; PULSE 72; RESP 16; TEMP 36.6; O2SAT 97
[2021-12-16] MEDS: VANCOMYCIN 125 MG CAPSULE PO (08:55)
[2021-12-16] MEDS: predniSONE 20 MG TABLET 40 MG PO (08:56)
--- NOTE | 2021-12-16 09:58 | PM.DS1 ---
DS: Providers Provider Date Seen: 12/16/21 Date of admission: 12/15/21 10:14 Primary care physician: Not a Local Provider Admitting Clinician: Jorge Gomez MD Consults: 12/14/21 20:31 Consult to Nutrition [CONS] Routine Comment: Reason for consult:: Miscellaneous Comment: Suspicious of Crohn's disease Attending Physician on discharge: Lisa Frias MD Date of Discharge: 12/16/21 DS: Diagnosis Discharge Diagnosis (1) C. difficile colitis: Status: Acute (2) Gastric ulcer: Status: Acute (3) IBD (inflammatory bowel disease): Status: Acute (4) Leukocytosis: Status: Acute DS: Summary Hospital Course Hospital Course: Daniel is a 26-year-old male who presented hospital with abdominal pain and intermittent diarrhea. Admission CT scan was concerning for inflammatory bowel disease. Diarrhea dissolved early during stay; on hospital day 1, stool sample was sent to the lab which tested positive for C diff. Patient was treated with oral vancomycin and will continue this upon discharge. Given concern for IBD, patient was initiated on IV steroids. Colonoscopy and endoscopy were ordered (colonoscopy subsequently canceled after C diff returned positive); endoscopy performed on 12/16 and notable for gastric ulcers, biopsy results pending. Admission labs were notable for leukocytosis, this did improved significantly during hospital stay. Patient had no fever or signs symptoms of acute infectious process besides C diff. Patient remained hemodynamically stable throughout stay, appropriate for discharge on 12/16. He is discharged home on prednisone to complete 5 day course of steroid burst, oral vancomycin for C diff, and b.i.d. omeprazole. Patient currently does not have a PCP; we recommend that he follow up with the PCP as he will needed colonoscopy in the future for follow-up of presumed inflammatory bowel disease (ie Crohns). Time Spent with Patient Time attestation: Total time spent providing and/or coordinating discharge services: Time spent: Greater than 30 minutes Exam Narrative: Exam Narrative: GEN: Alert and oriented, answering questions appropriately HEENT: Normal external ears, EOMIs bilaterally, no scleral icterus Abdomen: Soft and nontender, no rebound or guarding Ext: wwp, no concerning edema Skin: No concerning skin lesions or rashes on exposed skin Neuro: Nonfocal Const: Vital Signs, click to edit/add: Vital Signs - 24 hr 12/15/21 11:00 12/15/21 15:00 12/15/21 15:00 Temperature 97.8 F 98.2 F Pulse Rate [Right Pulse Oximeter] 69 83 83 Respiratory Rate 18 18 18 Blood Pressure [Le ft Arm] 113/76 104/62 Pulse Oximetry 96 96 Oxygen Delivery Me thod Room Air Room Air 12/15/21 19:00 12/15/21 23:00 12/15/21 23:00 Temperature 98.1 F 97.7 F Pulse Rate [Right Pulse Oximeter] 89 90 90 Respiratory Rate 18 18 18 Blood Pressure [Le ft Arm] 114/73 112/69 Pulse Oximetry 96 96 Oxygen Delivery Me thod Room Air Room Air 12/16/21 02:59 12/16/21 08:50 Temperature 97.7 F 97.9 F Pulse Rate [Right Pulse Oximeter] 76 72 Respiratory Rate 18 16 Blood Pressure [Le ft Arm] 108/70 110/78 Pulse Oximetry 95 97 Oxygen Delivery Me thod Room Air Room Air DS: Data Data Completed and Pending Pending studies at discharge: Pathology from biopsies during EGD, stool studies Labs on day of discharge: Labs from last 24 hours 12/16/21 12/16/21 12/15/21 06:39 06:39 09:08 WBC 16.83 H RBC 4.16 L Hgb 13.1 L Hct 39.6 MCV 95 MCH 32 MCHC 33 RDW Coeff of Richard 13.0 Plt Count 237 Neut % (Auto) 75.6 H Lymph % (Auto) 12.6 L [place] % (Auto) 9.8 Eos % (Auto) 1.1 Baso % (Auto) 0.1 Neut # (Auto) 12.70 H Lymph # (Auto) 2.10 Corson # (Auto) 1.60 H Eos # (Auto) 0.20 Baso # (Auto) 0.00 Abs Immat Gran (auto) 0.13 Sodium 142 Potassium 4.2 Chloride 108 Carbon Dioxide 25 BUN 10 Creatinine 0.7 Estimated Creat Clear 153.36 Estimated GFR 130 Glucose 114 Calcium 8.9 Total Bilirubin 0.1 AST 17 ALT 9 Alkaline Phosphatase 125 Total Protein 6.9 Albumin 3.8 Stl C.difficile Tox PCR St C. diff Tox Epid 027 Ova & Parasites Pending Stool H. pylori Ag 12/15/21 12/15/21 09:08 09:08 WBC RBC Hgb Hct MCV MCH MCHC RDW Coeff of Richard Plt Count Neut % (Auto) Lymph % (Auto) Corson % (Auto) Eos % (Auto) Baso % (Auto) Neut # (Auto) Lymph # (Auto) Cors[place] # (Auto) Eos # (Auto) Baso # (Auto) Abs Immat Gran (auto) Sodium Potassium Chloride Carbon Dioxide BUN Creatinine Estimated Creat Clear Estimated GFR Glucose Calcium Total Bilirubin AST ALT Alkaline Phosphatase Total Protein Albumin Stl C.difficile Tox PCR POSITIVE A* St C. diff Tox Epid 027 PRESUMPTIVE NEGATIVE Ova & Parasites Stool H. pylori Ag Negative Preliminary micro results at discharge 12/14/21 17:37 Blood Culture - Preliminary Blood NO GROWTH AFTER 24 HOURS 12/14/21 17:37 Blood Culture - Preliminary Blood NO GROWTH AFTER 24 HOURS Discharge Plan Discharge Disposition: Home, Self-Care Date of Admission: 12/15/21 10:14 Attending Provider on Discharge: Lias Frias Consulting Providers: Vinayak Austin Primary Care Provider: Provider,Not a Local Condition: Stable Anticipated Discharge Date/Time: 12/16/21 09:49 Discharge Medications: New prednisone 20 mg Tablet 40 mg PO DAILYWM 3 Days Qty: 6 0RF Rx Instructions: Instructions in anguillan please vancomycin 125 mg Capsule 125 mg PO QID 9 Days Qty: 36 0RF Rx Instructions: instructions in Ukrainian please omeprazole 20 mg Capsule,Delayed Release(Dr/Ec) 20 mg PO BID 90 Days Qty: 180 0RF Rx Instructions: instructions in anguillan please No Action No Known Home Medications Discharge Orders: Discharge Order (Routine); Ordered 12/16/21 Ordered By: Lisa Frias Patient Education: Prednisone (By mouth), Omeprazole (By mouth), Vancomycin (By mouth), Gastritis (GEN), C. Diff (Clostridioides Difficile) Infection (DC) Activity Restrictions/Additional Instructions: No more Ibuprofen for pain, Tylenol (Acetaminophen) is okay. Your THREE new medications are at [facility] - bring the coupon with to get these today. You should have a followup at the [facility] or at [facility] in 1-2 weeks. [facility] can help you with your insurance paperwork. We will call you with the results of your biopsies. No m?s ibuprofeno para el dolor, Tylenol (acetaminof?n) est? gunnar. Evi AMERICO medicamentos nuevos est?n en la farmacia Anirudh: traiga el cup?n para obtenerlos hoy. Debe tener un seguimiento en la [facility] o en [facility] en 1-2 semanas. [place] [employer] puede ayudarlo con kelsey documentaci?n de seguro. Le llamaremos con los resultados de evi biopsias. Activity Level: Activity as Tolerated Discharge Diet: Heart Healthy (2 gm sodium, low fat) and Low Fiber Follow Up Appointments: Provider,Not a Local [Primary Care Provider] - Forms: MyHealth Info Instructions
--- NOTE | 2021-12-16 11:03 | PC.SOCIAL ---
Met with pt. with the physician interpreting, to give resources on [facility] and the [facility]. Pt. does not have insurance and has been given an application to apply. Pt. was told he can to the [facility] for assistance in filling out the application and was given their address and phone number. Pt. will obtain his medications at discharge from [facility] and was given a pamphlet on their free clinic.
[2021-12-16 20:10] LABS: Immunoglobulin A 351 mg/dL (68-408)
[2021-12-17 00:32] LABS: Tissue Transglut Ab IgA 2 U/mL (0-3)
[2021-12-23 17:22] LABS: Ova and Parasite, Fecal Negative (Negative)
== END 2021-12-16 11:34 | disposition home or self-care (01) | DRG 372 ==
LOC: ED 20:19 → MEDSURG 20:34
PROVIDERS: Family Medicine; Admitting Provider Internal Medicine; Emergency Provider Family Medicine; Visit Provider Internal Medicine
DX: A04.72 Enterocolitis due to Clostridium difficile, not specified as recurrent (principal); K22.10 Ulcer of esophagus without bleeding; K25.9 Gastric ulcer, unspecified as acute or chronic, without hemorrhage or perforation; K58.0 Irritable bowel syndrome with diarrhea; E86.0 Dehydration; Z87.891 Personal history of nicotine dependence; K42.9 Umbilical hernia without obstruction or gangrene; D72.829 Elevated white blood cell count, unspecified
CPT/HCPCS: 00731; 36415; 43239; 74177; 80053; 80076; 81003; 82306; 82607; 82784; 82977; 83516; 83540; 83550; 83605; 83690; 85025; 85610; 85651; 86140; 87040; 87045; 87046; 87177; 87209; 87338; 87427; 87493; 87502; 87635; 88305; 99284; A9270; C9113; G0378; J2704; J2920; J7030; J7512; Q9967

== ENCOUNTER 2024-01-06 19:34 | Emergency (ER) | payer OTHER, SELFPAY ==
[2024-01-06 19:46] VITALS: BP 136/90; PULSE 83; RESP 16; TEMP 36.8; O2SAT 97; BMI 27.1
--- NOTE | 2024-01-06 19:53 | CRLHL7_ITS ---
For Patients: As a result of the Cures Act, medical imaging exams and procedure reports are released immediately into your electronic medical record. You may view this report before your referring provider. If you have questions, please contact your health care provider. Indication: Trauma. Technique: Right humerus, 4 views. Comparison: None. Findings/Impression: Bones: Alignment is normal. No displaced fractures or bone lesions. Joint spaces: Unremarkable. Soft tissues: Unremarkable. Dictated by Edward Patrick MD @ 01/06/2024 8:25:10 PM (Electronically Signed)
--- NOTE | 2024-01-06 20:15 | ED_ITS ---
HPI - General Adult General Chief complaint: Animal Bite Stated complaint: Horse bite R arm Time Seen by Provider: 01/06/24 20:07 History of Present Illness HPI narrative: bit by horse this afternoon, right upper arm. pain rated 8/10. CMS intact, movement does cause pain. Last tetanus was 8-10 years ago 28-year-old young man presenting to the emergency department shortly after sustaining a horse bite to his right arm. 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 Is having a great deal of pain. Hurts in particular just to flex his right arm; this seems to be limiting function. Was bit on the upper right arm. Tetanus thought to be due for an update. Related Data Home Medications ?Medication ?Instructions ?Recorded ?Confirmed No Known Home Medications 12/14/21 12/14/21 Previous Rx's ?Medication ?Instructions ?Recorded omeprazole 20 mg capsule,delayed 20 mg PO BID 90 days #180 caps 12/16/21 release prednisone 20 mg tablet 40 mg (2 x 20 mg) PO DAILYWM 3 12/16/21 days #6 tabs vancomycin 125 mg capsule 125 mg PO QID 9 days #36 caps 12/16/21 Allergies Allergy/AdvReac Type Severity Reaction Status Date / Time No Known Drug Allergies Allergy Verified 12/14/21 17:49 Review of Systems Status of ROS: Reports: 6 or more systems reviewed and unremarkable except as noted in History and below [facility] Medical History Elevated alkaline phosphatase level ?R74.8 - Abnormal levels of other serum enzymes (ICD-10) Leukocytosis ?D72.829 - Elevated white blood cell count, unspecified (ICD-10) Surgical History H/O right inguinal hernia repair ?Z98.890 - Other specified postprocedural states (ICD-10) ?Z87.19 - Personal history of other diseases of the digestive system (ICD-10) Social History Highest level of school completed/degree received: high school graduate Smoking Status: Former smoker Do you use any of these nicotine containing products: None Second hand tobacco smoke exposure: No How often do you have a drink containing alcohol: monthly or less Alcohol type: beer How often do you have six or more drinks on one occasion: Never AUDIT-C Alcohol total score: 1 Non-prescribed substance use: denies use Caffeine: Yes service: No Exam Narrative: Exam Narrative: Pleasant. Clearly uncomfortable. Calm. Breathing easily. Intact sensation distally in the arms. Well-perfused peripherally. Examination of the right upper arm in question shows a U shaped superficial abrasion consistent with bite as described. It is across the bicep. Lower aspect does go intradermal. Not actively bleeding. Or angry abrasion on the internal aspect upper. With active flexion bulges out with intense pain in the mid upper bicep. Less prominent with assisted flexion. Sore to palpation in these areas as well. Const: Vital Signs, click to edit/add: Vital Signs - 24 hr 01/06/24 19:46 Temperature 98.3 F Pulse Rate [Left P ulse Oximeter] 83 Respiratory Rate 16 Blood Pressure [Le ft Upper Arm] 136/90 H Pulse Oximetry 97 Oxygen Delivery Me thod Room Air Documenting provider has reviewed patient's vital signs: yes Course Vital Signs Vital signs: Initial Vital Signs Temperature 98.3 F 01/06/24 19:46 Temperature Source Temporal Artery Scan 01/06/24 19:46 Pulse Rate 83 01/06/24 19:46 Pulse Rhythm Regular 01/06/24 19:46 Respiratory Rate 16 01/06/24 19:46 Blood Pressure 136/90 H 01/06/24 19:46 Blood Pressure Mean 105 01/06/24 19:46 Blood Pressure Position Sitting 01/06/24 19:46 Pulse Oximetry 97 01/06/24 19:46 Oxygen Delivery Method Room Air 01/06/24 19:46 Vital Signs Temperature 98.3 F 01/06/24 19:46 Pulse Rate 83 01/06/24 19:46 Respiratory Rate 16 01/06/24 19:46 Blood Pressure 136/90 H 01/06/24 19:46 Pulse Oximetry 97 01/06/24 19:46 Oxygen Delivery Method Room Air 01/06/24 19:46 Temperature 98.3 F 01/06/24 19:46 Pulse Rate 83 01/06/24 19:46 Respiratory Rate 16 01/06/24 19:46 Blood Pressure 136/90 H 01/06/24 19:46 Pulse Oximetry 97 01/06/24 19:46 Oxygen Delivery Method Room Air 01/06/24 19:46 Medications Administered Medications: Discontinued Medications Generic Name Dose Route Start Last Admin Trade Name Yassine PRN Reason Stop Dose Admin Diphtheria/Tetanus/Acell Pertussis 0.5 ml 01/06/24 21:15 01/06/24 21:35 Tetanus/Diphth/Pertussis 0.5 Ml Syringe IM 01/06/24 21:16 0.5 ml .ONCE ONE Administration Ibuprofen 800 mg 01/06/24 20:27 01/06/24 21:35 Ibuprofen 400 Mg Tablet PO 01/06/24 20:28 800 mg ONCE ONE Administration Medical Decision Making MDM Narrative Medical decision making narrative: X-rays were ordered by the time I am seeing Mr. Webster. I would presume some fascial disruption or muscle disruption. Does not appear to have involved tendon insertion. Did have a history of gastropathy with EGD done of 9 years ago. Denies current symptoms. X-ray reviewed by me of the right humerus does not show acute bony abnormality. Given arm sling. Ibuprofen and ice pack. I do review this case with Orthopedics on-call. In agreement with treatment so far and will reach out after the weekend. Work note written See patient discharge plan for further discussion Medical Records Medical records reviewed: Yes I reviewed the patient's medical records Discharge Plan Discharge Clinical Impression: Biceps rupture, proximal Patient Disposition: Home, Self-Care Condition: Stable Additional Instructions: As we discussed, be careful with ibuprofen given your stomach irritation history but taking with a little food in the short term I think should be okay. Can take up to 600 mg per dose. Can take up to 1000 mg of acetaminophen per dose. Am prescribing some [place] from [facility]. This is an opiate. Remember that each tablet contains 325 mg of acetaminophen. Also cephalexin from [facility] is in antibiotic Wear this arm sling over this next week. I did speak with Orthopedics and you should expect a call from them Monday morning to arrange follow-up. Phone number is [phone]; if they do not call you by noon, go ahead and call them. Chuy ya comentamos, tenga cuidado con el ibuprofeno, dado kelsey historial de irritaci?n estomacal, randell creo que tomarlo con un poco de comida a corto plazo no deber?a ser un problema. Puede angela hasta 600 mg por dosis. Puede angela hasta 1000 mg de acetaminofeno por dosis. Le estoy recetando [place] [facility]. 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 Recuerde que cada comprimido contiene 325 mg de acetaminofeno. Tambi?n la cefalexina de [facility] est? en antibi?ticos. Use roseline cabestrillo myrna la pr?xima semana. Habl? con Orthopedics y deber?a esperar manju llamada de ellos el lunes por la ma?ronen para coordinar un seguimiento. El n?weston de tel?fono es [phone]; si no lo llaman antes del mediod?a, ll?melos. Activity Level: Activity as Tolerated Discharge Diet: Regular Prescriptions: No Action No Known Home Medications prednisone 20 mg Tablet 40 mg PO DAILYWM 3 Days Qty: 6 0RF Rx Instructions: Instructions in citizen of [place] please vancomycin 125 mg Capsule 125 mg PO QID 9 Days Qty: 36 0RF Rx Instructions: instructions in Ukrainian please omeprazole 20 mg Capsule,Delayed Release(Dr/Ec) 20 mg PO BID 90 Days Qty: 180 0RF Rx Instructions: instructions in citizen of [place] please Follow Up/Referrals: Provider,Not a Local [Primary Care Provider] - Stand Alone Forms: MyHealth Info Instructions
--- OUTSIDE RECORDS SUMMARY | 2024-01-06 20:51 | XMS_ITS | Data Portability ---
Author Organization [facility] [employer] wilfrido [facility] Address [address] [place] [id number] Assessment No assessment recorded. Plan of Treatment Reminders Order Date Submit Date Provider Last Modified By Organization Details Last Modified Time Details Appointments None recorded . Lab CBC w/ auto diff 022 [email or web address] Not available 15:45:46 CMP, serum or plasma einamagua Not available 15:45:36 Referral None recorded . Procedures None recorded . Surgeries None recorded . Imaging None recorded . Medication Orders None recorded . Patient TargetsNo targets recorded. Patient InstructionsNo instructions recorded. Reason for Referral None Reported. Results Created Date Observation Date Name Description Value Unit Range Abnormal Flag Note LastModifiedBy Organization Detail LastModifiedTime 01/14/2012/14/2021 blanei ng/ricardo vaughn tic resul t No observ ation record ed. [email or web address] Not Available 12:47:55 Result Notes None recorded. Problems Name Problem SNOMED Code Status Onset Date Resolution Date Notes Provider Name and Address Organization Details Recorded Time Gastroesophag eal reflux disease 567006329 Active 2021 YEHUDA Mancilla [address] [place], [address], [facility] [employer] 12:36:15 Problem Notes None recorded. Procedures Surgical History Date Name Laterality Status Provider Name and Address Organization Details Recorded Time Hernia Repair completed YEHUDA Mancilla [address] [place], [address], [facility] [employer] 01/13/2022 23:39:57 Imaging Results Imaging Date Name Status LastModified by Organiz ation Details LastModified Time 12/14/2021 imaging/diag nostic result completed kaylyn Information not available 01/13/2022 12:47:55 Procedure Notes None recorded. Medical Equipment None Reported. Allergies No known drug allergies Medications Name Sig Start Date Stop Date Status Note LastModified by Organization Details LastModified Time prednisone 20 mg tablet TOME DOS TABLETAAS POR LA BOCA CADA VIGNESH CON COMIDA FOR 3 DAYS 01/13 completed Not Available Not Available Not Available vancomycin 125 mg capsule TOME ADILENE CAPSULA POR LA BOCA FOUR TIMES A DAY FOR 9 DAYS 01/13 completed Not Available Not Available Not Available omeprazole 20 mg capsule,del ayed release Take 1 capsule twice a day by oral route. active Not Available Not Available No t Available Vitals Date Recorded Body height Body mass index (BMI) Body weight Heart rate Body temperature Systolic blood pressure Diastolic blood pressure Provider Name and Address Organization Details Last Updated DateTime 2 181.86 cm 22.4 kg/m2 89310.3 5 g 92 /min 98.7 [degF] 111 mm[Hg] 69 mm[Hg] Reva Lucas [facility] [employer] 12:05:31 Social History Question Answer Notes LastModified by Organization Details LastModified Time Tobacco Smoking Status Current Every Day Smoker YEHUDA Mancilla [address] [place], [address], [facility] [employer] 01/13/2022 12:39:37 What Is Your Level Of Alcohol Consumption? Occasional 2-3 Times/month; 3-4 Beers At A Time Information not available 01/13/2022 Are You Currently Employed? Yes [employer] Information not available 01/13/2022 What Is The Highest Grade Or Level Of School You Have Completed Or The Highest Degree You Have Received? [id number] Information not available 01/13/2022 How Many Children Do You Have? 2 Information not available 01/13/2022 What Is Your Relationship Status? Information not available 01/13/2022 At What Age Did You Start Smoking Tobacco? 23 Information not available 01/13/2022 Do You Use Any Illicit Or Recreational Drugs? No Information not available 01/13/2022 How Many Years Have You Smoked Tobacco? 3 Information not available 01/13/2022 Sex: Unknown Functional Status None recorded. Mental Status None recorded. Family History Relationship Description Onset Age of this Age Resolved Age Notes Father No current problems or disability Mother No current problems or disability Medical History No medical history recorded. Past Encounters Encounter ID Performer Location Encounter Start Date Encounter Closed Date Diagnosis/Indication Diagnosis SNOMED-CT Code Diagnosis ICD10 Code [id number] YEHUDA Mancilla [facility] [address] [place] [address] 01/13/2022 11:52:01 01/13/2022 16:42:36 Reactive gastropathy 743491706 K31.9 Alkaline p hosphatase above reference range 409293463 R74.8 Gastroesop hageal reflux disease 062264161 K21.00 Clostridio ides difficile infection 406276266 A04.72 Health Concerns Section Related Observation LastModified by Organization Detai ls LastModified Time None Recorded Concern Status LastModified by Organization Details LastModified Time None Recorded Advance Directives Directive None Recorded Payers Encounter Date Sequence Insurance Name Policy Number Policy Chen Covered Member ID Chen Member ID Guarantor Name 01/13/2022 SLIDING FEE SCHEDULE - DISCOUNT Daniel Webster Notes Date Note Type Note Provider Name and Address Organization Details Recorded Time 01/13/2022 text/html HPI Notes: Pt he re today to establish care and for hospital f/u No primary care provider Was seen at [facility] on 12/14 for abd pain, diarrhea Had been having sxs for about a month before they got so bad he presented to ER. At the ER he had CT scan and lab work up concerning for Crohn's and pt was admitted and put on steroids. Ended up having endoscopy as well; colonoscopy initially recommended but b/c pt ended up having Cdiff in the stool, it was determined he may not need the Crohn's work up as sxs were likely result of that infection. Was treated c prednisone and vancomycin. Endoscopy showed reactive gastropathy--recom mendation to avoid foods/beverages/me ds that can exacerbate inflammation. Omeprazole rx'd; pt currently taking 20mg bid . Assumed H pylori negative? Had significantly high WBC in hospital; Alk phos was also elevated Since then he has tried to watch his diet -- has decreased intake of fats, salt and increased vegetables. ALso trying to eat more chicken, fish. Says abd pain has resolved, though occasionally has some reflux sxs. Denies diarrhea, constipation. Reports regular, soft bowel movements, 2-3 times/day. No blood in stool. No signficant PMH. 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 Originally from YE[place] Mancilla [address] [place], [address], [facility] 01/14/2022 00:18:42
[2024-01-06] MEDS: IBUPROFEN 400 MG TABLET 800 MG PO (21:35)
[2024-01-06] MEDS: TETANUS/DIPHTH/PERTUSSIS 0.5 ML SYRINGE IM (21:35)
== END 2024-01-06 21:36 | disposition home or self-care (01) ==
PROVIDERS: Emergency Provider Family Medicine
DX: S46.211A Strain of muscle, fascia and tendon of other parts of biceps, right arm, initial encounter (principal); W55.11XA Bitten by horse, initial encounter; Y92.71 Barn as the place of occurrence of the external cause; Z23 Encounter for immunization
CPT/HCPCS: 73060; 90471; 90715; 99284; A9270

== ENCOUNTER 2024-01-24 08:10 | Outpatient (CLI) | payer OTHER, SELFPAY ==
--- NOTE | 2024-01-24 08:15 | MR_ITS ---
[address] [address] Phone:?[phone] Fax:?[phone] Referring Physician Information: Janet Keys [address] [facility] [address] Phone:?[phone] Fax:?[phone] Patient:Yaneli Leedo D.O.B:?1995 Sex:?Male Phone:?[phone] [facility] MRN:?[id number] Exam Date:?01/24/2024 EXAM: MRI EXAMINATION OF THE RIGHT SHOULDER CLINICAL INFORMATION: Right shoulder pain. Injury. No history of surgery to this area. Possible muscle injury. TECHNICAL INFORMATION: Coronal STIR. Axial PD and T2 fat saturation. Sagittal and coronal PD and T2-weighted images acquired. No prior studies for comparison. INTERPRETATION: Bones: There is no Hill-Sachs impaction deformity. No other occult fracture or osseous contusion. No bony erosive/destructive changes. No other bone marrow edema pattern. Rotator Cuff: Tendinopathy involves the anterior two thirds of the supraspinatus tendon. Signal heterogeneity and mild irregularity with additional component of lamellar-type intrasubstance degeneration. No discrete tear. The infraspinatus tendon is intact without tear or significant tendinopathy. The teres minor tendon is intact. The subscapularis tendon is intact. No evidence for rotator cuff muscle belly atrophy or edema signal. There is no other muscle belly edema pattern identified. Coracoacromial arch: There is no discrete subacromial osseous spur. The bony acromiohumeral interval is an 8 mm. There is no thickening identified of the coracoacromial ligament. Acromioclavicular joint: There is no significant acromioclavicular joint degenerative arthrosis. No deformity of the underlying supraspinatus tendon. Mild fluid signal within the subacromial/subdeltoid bursa areas. Biceps tendon: The long head biceps tendon is intact and nondisplaced from the bicipital groove. No evidence for a tendon tear or appreciable changes of tendinopathy. Glenohumeral joint and labrum: No significant glenohumeral joint effusion. No discrete loose body within the joint. Osteochondral surfaces appear relatively preserved. No discrete SLAP tear. No other definite evidence for labral tear. No discrete paralabral cyst is identified. Unremarkable and intact appearance of the inferior glenohumeral capsule. CONCLUSION: 1. Mild to moderate tendinopathy involves the anterior two thirds of the supraspinatus tendon. Signal heterogeneity with mild irregularity and component of the lamellar-type intrasubstance degeneration. No discrete tear. 2. No abnormal narrowing of the acromiohumeral interval. Mild subacromial/subdeltoid bursitis. 3. No evidence for acute muscle belly injury. No evidence for a soft tissue fluid collection. 4. Unremarkable and intact long head biceps tendon. 5. No definite labral tear. No paralabral cyst. KES Electronically signed on 01/24/2024 11:54:00 AM by Jonnie Day M.D.
== END 2024-01-24 08:11 | disposition home or self-care (01) ==
LOC: MRI 08:13
PROVIDERS: Visit Provider Physician Assistant Surgical
DX: M25.511 Pain in right shoulder (principal); S46.119A Strain of muscle, fascia and tendon of long head of biceps, unspecified arm, initial encounter
CPT/HCPCS: 73221; T1013

== ENCOUNTER 2024-02-01 10:03 | Outpatient (CLI) | payer OTHER, SELFPAY ==
--- OUTSIDE RECORDS SUMMARY | 2024-02-01 10:07 | XMS_ITS | Data Portability ---
Author Organization [facility] Qumu wilfrido [facility] Address [address] [place] [id number] Assessment No assessment recorded. Plan of Treatment [...] Details Recorded Time Gastroesophag eal reflux disease 058063969 Active 2021 YEHUDA Mancilla [address] [place], [address], [facility] [employer] 12:36:15 Problem Notes None recorded. Procedures Surgical History Date Name Laterality Status Provider Name and Address Organization Details Recorded Time Hernia Repair completed YEHUDA Mancilla [address] [place], [address], [facility] [employer] 01/13/2022 23:39:57 Imaging Results Imaging Date Name [...] Updated DateTime 2 181.86 cm 22.4 kg/m2 53419.3 5 g 92 /min 98.7 [degF] 111 mm[Hg] 69 mm[Hg] Reva Lucas [facility] [employer] 12:05:31 Social History Question Answer Notes LastModified by Organization Details LastModified Time Tobacco Smoking Status Current Every Day Smoker YEHUDA Mancilla [address] [place], [address], [facility] [employer] 01/13/2022 12:39:37 What Is Your Level Of Alcohol Consumption? Occasional 2-3 Times/month; 3-4 Beers At A Time Information not available 01/13/2022 Are You Currently Employed? Yes [employer]sc[employer] Information not available 01/13/2022 What Is The Highest Grade Or Level Of School You Have Completed Or The Highest Degree You Have Received? [id number] Information not available 01/13/2022 How Many Children [...] Age of this Age Resolved Age Notes LastModified by Organization Details LastModified Time Father No current problems or disability [email or web address] Not available 01/13 12:37:00 Mother No current problems or disability [email or web address] Not available 01/13 12:37:00 Medical History No medical history recorded. Past Encounters Encounter ID Performer Location Encounter Start Date Encounter Closed Date Diagnosis/Indication Diagnosis SNOMED-CT Code Diagnosis ICD10 Code [id number] YEHUDA Mancilla [facility] [address] [place] [address] 01/13/2022 11:52:01 01/13/2022 16:42:36 Reactive gastropathy 892593572 K31.9 Alkaline p hosphatase above reference range 258511817 R74.8 Gastroesop hageal reflux disease 668724116 K21.00 Clostridio ides difficile infection 956590621 A04.72 Health Concerns Section Related Observation LastModified [...] No primary care provider Was seen at [facility] on 12/14 for abd pain, diarrhea Had [...] occasionally Lives with and children 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 Originally from YEHUDA Mancilla [address] [place], [address], [facility] - [employer] [facility] 01/14/2022 00:18:42
--- NOTE | 2024-02-01 10:15 | CRLHL7_ITS ---
For Patients: As a result of the Century Cures Act, medical imaging exams and procedure reports are released immediately into your electronic medical record. You may view this report before your referring provider. If you have questions, please contact your health care provider. Indication: Injury to the upper arm muscle Technique: Grayscale and color Doppler real-time ultrasound of the right mid upper arm performed in the areas of concern. Comparison: MRI of the right shoulder and x-rays of the right humerus Findings: There is full-thickness disruption of the biceps muscle in the mid right upper arm with an approximate 2.2 cm gap containing fluid. This involves the distal muscle with possible involvement of the myotendinous junction. The distal biceps tendon at the elbow is intact. The underlying brachialis muscle is intact. However, there is edema within the brachialis muscle more distally just above the elbow. Ultrasound evaluation of the ulnar soft tissues about the elbow reveals no abnormality. Impression: Full-thickness tear of the biceps muscle in the mid upper arm possibly involving the myotendinous junction. Focal edema/swelling of the distal brachialis muscle in the distal upper arm. Dictated by Adam Dixon MD @ 02/01/2024 12:59:28 PM (Electronically Signed)
== END 2024-02-01 10:04 | disposition home or self-care (01) ==
LOC: US 10:05
PROVIDERS: PCP Registered Nurse; Visit Provider Physician Assistant Surgical
DX: S46.219A Strain of muscle, fascia and tendon of other parts of biceps, unspecified arm, initial encounter (principal); S46.211A Strain of muscle, fascia and tendon of other parts of biceps, right arm, initial encounter
CPT/HCPCS: 76882; T1013